=== PATIENT | female | born 1995 | race Caucasian/White ===

== ENCOUNTER 2021-10-17 15:29 | Emergency (ER) | payer BC ==
--- NOTE | 2021-10-17 15:46 | PCM.EKG ---
#1 Interpretation EKG Date: 10/17/21 Time: 15:31 Rhythm: Other (sinus tachy) Rate (Beats/Min): 130 ST-T: Normal
[2021-10-17] MEDS ORDERED: Sodium Chloride 0.9% 1,000 ML IV ONE (16:04)
[2021-10-17] MEDS ORDERED: Ketorolac 30 MG/ML SDV IVPUSH ONE (16:05)
--- NOTE | 2021-10-17 16:06 | EDM.PDOC ---
ED HPI GENERAL MEDICAL PROBLEM - General Chief Complaint: Respiratory Problem Stated Complaint: CHEST PAIN SOB COUGHING Time Seen by Provider: 10/17/21 16:02 Source of Information: Reports: Patient History Limitations: Reports: No Limitations - History of Present Illness INITIAL COMMENTS - FREE TEXT/NARRATIVE: HISTORY AND PHYSICAL: History of present illness: Patient is a 25-year-old female who presents to the emergency room with complaints of shortness of breath, cough, sore throat, fever and chest pain. Patient denies any headache, change in vision, syncope or near syncope. Denies any back pain or hemoptysis. Denies any abdominal pain, nausea, vomiting, diarrhea, constipation or dysuria. Has not noted any blood in urine or stool. No concern for . Patient has been eating and drinking appropriately. No recent travel or sick contacts. Review of systems: As per history of present illness and below otherwise all systems reviewed and negative. Past medical history: As per history of present illness and as reviewed below otherwise noncontributory. Surgical history: As per history of present illness and as reviewed below otherwise noncontributory. Social history: See social history for further information Family history: As per history of present illness and as reviewed below otherwise noncontributory. Physical exam: General: Well developed and well nourished. Alert and orientated x 3. Nontoxic in appearance and in no acute distress. Vital signs are stable and have been reviewed by me. Nursing notes were reviewed. HEENT: Atraumatic, normocephalic, pupils equal and reactive bilaterally, negative for conjunctival pallor or scleral icterus, mucous membranes moist, TMs normal bilaterally, throat clear, neck supple, nontender, trachea midline. No drooling or trismus noted. No meningeal signs. No hot potato voice noted. Lungs: Clear to auscultation bilaterally. No wheezes, rales, or rhonchi. Chest nontender. Normal work of breathing, no accessory muscles used. Heart: S1S2, tachycardia, regular rhythm without overt murmur, gallops, or rubs. No JVD. No peripheral edema Abdomen: Soft, nondistended, nontender. Normoactive bowel sounds. Negative for masses or costovertebral tenderness. Skin: Intact, warm, dry. No lesions or rashes noted. Hematologic: No petechiae or purpra. Mucosa appropriate color and normal nail bed color and refill. Extremities: Atraumatic, moves all extremities per self without difficulty or deficits, negative for cords or calf pain. Neurovascular unremarkable. Neuro: Awake, alert, oriented. Cranial nerves II through XII unremarkable. Cerebellum unremarkable. Motor and sensory unremarkable throughout. Exam nonfocal. Psychiatric: Mood and affect are appropriate. Normal thought process. Answering questions appropriately. Please note that the patient was seen and evaluated during the 2019 SARS-CoV-2 novel coronavirus pandemic period. Community viral transmission is ongoing at time of this encounter and the emergency department is operating under pandemic response procedures. Medical Decision Making: Patient's lab work is unremarkable with the exception of influenza A. Chest x- ray shows no acute findings. Her vital signs have improved. We will give her a work note to quarantine over the next 1 week until she is fever free for 24 hours. I have talked with the patient about today's findings, in addition to providing specific details for plan of care. Reassessment at the time of disposition demonstrates that the patient is in no acute distress. The patient is stable for discharge, counseling was provided and we discussed in great detail signs and symptoms that would prompt them to return to the Emergency Department. Medication, follow up and supportive care measures were reviewed and discussed. Voices understanding and is agreeable to plan of care. Denies any further questions or concerns at this time. Diagnostics: COVID-19/influenza, CBC, CMP, TSH, chest x-ray Therapeutics: IV fluid, Toradol Prescription: Cherratussin AC Impression: Influenza A Plan: 1. You were evaluated today on an emergent basis. Your Influenza A screening is positive. Your lab work. chest x-ray and COVID-19 are normal. You are considered contagious. Please stay indoors x 1 week or until you are fever free x 24 hours. 2. You can alternate Tylenol and ibuprofen as needed for pain and fever management. 3. We encourage you to follow up with your primary care provider for re- evaluation and further care/management. 4. If your symptoms should worsen, new symptoms develop or any of the signs and symptoms we discussed should arise please return to the emergency room or call 911 (if needed). Definitive disposition and diagnosis as appropriate pending reevaluation and review of above. - Related Data Allergies Allergy/AdvReac Type Severity Reaction Status Date / Time No Known Allergies Allergy Verified 10/17/21 15:44 Home Meds: Home Meds Control 01/08/19 [History] Past Medical History - Past Health History Medical/Surgical History: Denies Medical/Surgical History - Infectious Disease History Infectious Disease History: Reports: None Social & Family History - Family History Family Medical History: No Pertinent Family History ED ROS GENERAL - Review of Systems Review Of Systems: Comprehensive ROS is negative, except as noted in HPI. ED EXAM, GENERAL - Physical Exam Exam: See Below (See dictation) Course - Vital Signs Last Recorded V/S: Last Vital Signs Temp 100.4 F 10/17/21 15:44 Pulse 130 H 10/17/21 15:44 Resp 16 10/17/21 15:44 BP 124/66 10/17/21 15:44 Pulse Ox 98 10/17/21 15:44 - Orders/Labs/Meds Orders: Active Orders 24 hr Category Date Time Status STREP A BY PCR [MOLEC] Stat Lab 10/17/21 16:12 Received Labs: Laboratory Tests 10/17/21 10/17/21 10/17/21 Range/Units 16:10 16:10 16:12 WBC 7.69 (4.0-11.0) K/uL RBC 4.36 (4.30-5.90) M/uL Hgb 13.9 (12.0-16.0) g/dL Hct 40.9 (36.0-46.0) % MCV 93.8 (80.0-98.0) fL MCH 31.9 (27.0-32.0) pg MCHC 34.0 (31.0-37.0) g/dL RDW Std Deviation 41.9 (28.0-62.0) fl RDW Coeff of Beau 12 (11.0-15.0) % Plt Count 220 (150-400) K/uL MPV 10.90 (7.40-12.00) fL Neut % (Auto) 74.9 (48.0-80.0) % Lymph % (Auto) 10.9 L (16.0-40.0) % [place] % (Auto) 13.5 (0.0-15.0) % Eos % (Auto) 0.4 (0.0-7.0) % Baso % (Auto) 0.3 (0.0-1.5) % Neut # (Auto) 5.8 H (1.4-5.7) K/uL Lymph # (Auto) 0.8 (0.6-2.4) K/uL [place] # (Auto) 1.0 H (0.0-0.8) K/uL Eos # (Auto) 0.0 (0.0-0.7) K/uL Baso # (Auto) 0.0 (0.0-0.1) K/uL Nucleated RBC % 0.0 /100WBC Nucleated RBCs # 0 K/uL Sodium 138 (136-145) mmol/L Potassium 3.5 (3.5-5.1) mmol/L Chloride 103 (98-107) mmol/L Carbon Dioxide 26.0 (21.0-32.0) mmol/L BUN 9 (7.0-18.0) mg/dL Creatinine 0.8 (0.6-1.0) mg/dL Est Cr Clr Drug Dosing 93.64 mL/min Estimated GFR (MDRD) > 60.0 ml/min Glucose 95 (74-106) mg/dL Calcium 8.4 L (8.5-10.1) mg/dL Total Bilirubin 0.4 (0.2-1.0) mg/dL AST 21 (15-37) IU/L ALT 25 (14-63) IU/L Alkaline Phosphatase 70 (46-116) U/L Total Protein 7.6 (6.4-8.2) g/dL Albumin 3.8 (3.4-5.0) g/dL Globulin 3.8 (2.6-4.0) g/dL Albumin/Globulin Ratio 1.0 (0.9-1.6) TSH, Ultra Sensitive 3.32 (0.36-3.74) uIU/mL Influenza Type A RNA POSITIVE H (NEGATIVE) Influenza Type B RNA NEGATIVE (NEGATIVE) SARS-CoV-2 RNA (AIME) NEGATIVE (NEGATIVE) Meds: Medications Discontinued Medications Generic Name Dose Route Start Last Admin Trade Name Freq PRN Reason Stop Dose Admin Sodium Chloride 1,000 mls @ 999 mls/hr 10/17/21 16:04 10/17/21 16:22 Normal Saline IV 10/17/21 17:04 999 mls/hr STAT ONE Administration Ketorolac Tromethamine 30 mg 10/17/21 16:05 10/17/21 16:22 Ketorolac 30 Mg/Ml Sdv IVPUSH 10/17/21 16:06 30 mg ONETIME ONE Administration Departure - Departure Time of Disposition: 18:06 Disposition: Home, Self-Care 01 Clinical Impression: Influenza A - Discharge Information Instructions: Influenza, Adult, [id number] Forms: ED Department Discharge Additional Instructions: The following information is given to patients seen in the emergency department who are being discharged to home. This information is to outline your options for follow-up care. We provide all patients seen in our emergency department with a follow-up referral. The need for follow-up, as well as the timing and circumstances, are variable depending upon the specifics of your emergency department visit. If you don't have a primary care physician on staff, we will provide you with a referral. We always advise you to contact your personal physician following an emergency department visit to inform them of the circumstance of the visit and for follow-up with them and/or the need for any referrals to a consulting specialist. The emergency department will also refer you to a specialist when appropriate. This referral assures that you have the opportunity for follow-up care with a specialist. All of these measure are taken in an effort to provide you with optimal care, which includes your follow-up. Under all circumstances we always encourage you to contact your private physician who remains a resource for coordinating your care. When calling for follow-up care, please make the office aware that this follow-up is from your recent emergency room visit. If for any reason you are refused follow-up, please contact the [facility] Emergency Department at and asked to speak to the emergency department charge nurse. [facility] [address] [place] [address] [id number] [address] [address] Thank you for choosing the [facility] emergency department in [place] for your medical needs today. It was a pleasure caring for you. Today you were seen in the emergency department for influenza 1. You were evaluated today on an emergent basis. Your Influenza A screening is positive. Your lab work. chest x-ray and COVID-19 are normal. You are considered contagious. Please stay indoors x 1 week or until you are fever free x 24 hours. 2. You can alternate Tylenol and ibuprofen as needed for pain and fever management. 3. We encourage you to follow up with your primary care provider for re- evaluation and further care/management. 4. If your symptoms should worsen, new symptoms develop or any of the signs and symptoms we discussed should arise please return to the emergency room or call 911 (if needed). Sepsis Event Note (ED) - Focused Exam Vital Signs: Vital Signs Temp Pulse Resp BP Pulse Ox 10/17/21 15:44 100.4 F 130 H 16 124/66 98 - My Orders Last 24 Hours: My Active Orders 10/17/21 16:12 STREP A BY PCR [MOLEC] Stat - Assessment/Plan Last 24 Hours: My Active Orders 10/17/21 16:12 STREP A BY PCR [MOLEC] Stat
[2021-10-17 17:27] LABS: BLOOD UREA NITROGEN,BUN 9 mg/dL (7.0-18.0); CHLORIDE,CL 103 mmol/L (98-107); GLUCOSE RANDOM 95 mg/dL (74-106); POTASSIUM,K 3.5 mmol/L (3.5-5.1); SODIUM,NA 138 mmol/L (136-145)
[2021-10-17 17:50] LABS: CORONAVIRUS COVID-19 NAA NEGATIVE (NEGATIVE); INFLUENZA A NAA POSITIVE (NEGATIVE); INFLUENZA B NAA NEGATIVE (NEGATIVE)
--- NOTE | 2021-10-17 17:51 | CR ---
INDICATION: cough TECHNIQUE: Chest 1 view. COMPARISON: 10/13/14 FINDINGS: Cardiovascular and mediastinum: Heart size and vasculature are normal in caliber and appearance. Mediastinum is within normal limits. Lungs and pleural space: Lungs are clear. No sign of infiltrate or mass. No sign of pleural effusion. No pneumothorax. Bones and soft tissues: No significant findings. IMPRESSION: Unremarkable chest. Dictated by: Gordo Borrero MD @ 10/17/2021 17:49:06 (Electronically Signed)
== END 2021-10-17 18:36 | disposition home or self-care (01) ==
LOC: MW.ED 15:29
DX: J10.1 Influenza due to other identified influenza virus with other respiratory manifestations (principal); Z20.822 Contact with and (suspected) exposure to COVID-19
CPT/HCPCS: 0240U; 36415; 71045; 80053; 84443; 85025; 87651; 93005; 96374; 99284; J1885; J7030

== ENCOUNTER 2023-04-02 13:31 | Emergency (ER) | payer BC ==
[2023-04-02] MEDS ORDERED: Acetaminophen 325 MG Tab PO ONE (16:40)
[2023-04-02 17:12] LABS: APPEARANCE,URINE CLEAR; BILIRUBIN,URINE NEGATIVE (NEGATIVE); COLOR,URINE YELLOW; GLUCOSE,URINE NEGATIVE (NEGATIVE); KETONES,URINE NEGATIVE (NEGATIVE); LEUKOCYTE ESTERASE,URINE NEGATIVE (NEGATIVE); NITRITE,URINE NEGATIVE (NEGATIVE); OCCULT BLOOD,URINE TRACE-INTACT (NEGATIVE); PROTEIN,URINE NEGATIVE (NEGATIVE); UROBILINOGEN,URINE 0.2 EU/dL (<2.0)
[2023-04-02 17:25] LABS: RBC,URINE 0-3 (0-2/HPF); WBC,URINE 0-1 (0-5/HPF)
[2023-04-02 17:45] LABS: BASOPHILS PERCENT AUTO 0.3 % (0.0-1.5); EOSINOPHILS PERCENT AUTO 0.3 % (0.0-7.0); HEMATOCRIT 40.9 % (36.0-46.0); LYMPHOCYTES ABSOLUTE AUTO 2.3 K/uL (0.6-2.4); LYMPHOCYTES PERCENT AUTO 20.9 % (16.0-40.0); MEAN CORPUSCULAR HEMOGLOBIN 31.7 pg (27.0-32.0); MEAN CORPUSCULAR HGB CONC 34.2 g/dL (31.0-37.0); MEAN CORPUSCULAR VOLUME 92.7 fL (80.0-98.0); MONOCYTES ABSOLUTE AUTO 0.5 K/uL (0.0-0.8); MONOCYTES PERCENT AUTO 4.7 % (0.0-15.0); NEUTROPHILS ABSOLUTE AUTO 7.9 K/uL (1.4-5.7); NEUTROPHILS PERCENT AUTO 73.8 % (48.0-80.0); NRBC ABSOLUTE 0 K/uL; PLATELET COUNT,PLT 307 K/uL (150-400); RED BLOOD CELL COUNT 4.41 M/uL (4.30-5.90); WHITE BLOOD CELL COUNT,WBC 10.75 K/uL (4.0-11.0)
[2023-04-02 18:51] LABS: BILIRUBIN TOTAL 0.6 mg/dL (0.2-1.0); CALCIUM 8.7 mg/dL (8.5-10.1); CARBON DIOXIDE,CO2 24.3 mmol/L (21.0-32.0); CREATININE 0.7 mg/dL (0.6-1.0); EST CRCL DRUG DOSING (CG) 100.74 mL/min; POTASSIUM,K 3.7 mmol/L (3.5-5.1); PROTEIN TOTAL,TP 7.9 g/dL (6.4-8.2)
== END 2023-04-02 20:30 | disposition home or self-care (01) ==
LOC: MW.ED 13:31
DX: O20.0 Threatened abortion (principal); Z3A.01 Less than 8 weeks gestation of pregnancy
CPT/HCPCS: 36415; 76817; 76817-26; 80053; 81001; 84702; 85025; 86850; 86900; 86901; 99284

== ENCOUNTER 2023-04-07 23:36 | Emergency (ER) | payer BC ==
[2023-04-08 01:22] LABS: BASOPHILS PERCENT AUTO 0.2 % (0.0-1.5); EOSINOPHILS PERCENT AUTO 0.1 % (0.0-7.0); HEMATOCRIT 39.1 % (36.0-46.0); HEMOGLOBIN 13.6 g/dL (12.0-16.0); LYMPHOCYTES ABSOLUTE AUTO 2.4 K/uL (0.6-2.4); LYMPHOCYTES PERCENT AUTO 12.6 % (16.0-40.0); MEAN CORPUSCULAR HEMOGLOBIN 32.4 pg (27.0-32.0); MEAN CORPUSCULAR HGB CONC 34.8 g/dL (31.0-37.0); MEAN CORPUSCULAR VOLUME 93.1 fL (80.0-98.0); MONOCYTES ABSOLUTE AUTO 0.7 K/uL (0.0-0.8); MONOCYTES PERCENT AUTO 3.9 % (0.0-15.0); NEUTROPHILS ABSOLUTE AUTO 15.9 K/uL (1.4-5.7); NEUTROPHILS PERCENT AUTO 83.2 % (48.0-80.0); NRBC ABSOLUTE 0 K/uL; PLATELET COUNT,PLT 292 K/uL (150-400); WHITE BLOOD CELL COUNT,WBC 19.09 K/uL (4.0-11.0)
[2023-04-08] MEDS ORDERED: Amoxicillin/Clavulanate K 875-125 MG Tab PO ONE (02:08)
== END 2023-04-08 02:36 | disposition home or self-care (01) ==
LOC: MW.ED 23:36
DX: O03.4 Incomplete spontaneous abortion without complication (principal)
CPT/HCPCS: 36415; 76817; 85025; 86850; 86900; 86901; 99284; A9270

== ENCOUNTER 2024-06-03 01:12 | Inpatient (IN) | payer BC ==
[2024-06-03] MEDS ORDERED: Oxytocin/0.9 % Sodium Chloride 30 UNIT/500 ML BAG IV SCH (01:15)
[2024-06-03] MEDS ORDERED: Nalbuphine 10 MG/1 ML Vial IVPUSH PRN (01:15)
[2024-06-03] MEDS ORDERED: Ondansetron 4 MG/2 ML SDV IVPUSH PRN (01:15)
[2024-06-03] MEDS ORDERED: Methylergonovine 0.2 MG/1 ML Amp IM PRN ×2 (01:15→18:59)
[2024-06-03] MEDS ORDERED: Butorphanol 2 MG/ML SDV IVPUSH PRN (01:15)
[2024-06-03] MEDS ORDERED: Sodium Chloride 0.9% 10 ML Syringe FLUSH PRN (01:15)
[2024-06-03] MEDS ORDERED: Tranexamic Acid IN NACL,ISO-OS 1,000 MG in Premix Bag 1 BAG IV PRN ×2 (01:15→18:59)
[2024-06-03] MEDS ORDERED: Water For Irrigation,Sterile 1,000 ML Container IRR PRN (01:15)
[2024-06-03] MEDS ORDERED: Carboprost Tromethamine 250 MCG/1 mL Vial IM PRN (01:15)
[2024-06-03] MEDS ORDERED: Misoprostol 200 MCG Tab PO PRN (01:15)
[2024-06-03] MEDS ORDERED: Sodium Chloride 0.9% 2.5 ML Syringe FLUSH PRN (01:15)
[2024-06-03] MEDS ORDERED: Sodium Chloride 0.9% 20 ML SDV IV PRN (01:15)
[2024-06-03] MEDS ORDERED: Lidocaine 1% 50 ML MDV INJECT PRN (01:15)
[2024-06-03] MEDS ORDERED: Terbutaline 1 MG/ML SDV SUBCUT PRN (01:15)
[2024-06-03] MEDS ORDERED: Misoprostol 25 MCG (1/4 of 100 MCG) Tab PO ONE (01:19)
[2024-06-03 02:12] LABS: HEMATOCRIT 33.2 % (37.0-47.0); HEMOGLOBIN 11.8 g/dL (12.0-16.0); MEAN CORPUSCULAR HEMOGLOBIN 32.3 pg (28.0-32.0); MEAN CORPUSCULAR HGB CONC 35.5 g/dL (32.0-36.0); MEAN PLATELET VOLUME 10.6 fL (9.4-12.3); PLATELET COUNT,PLT 245 K/uL (150-400); RED BLOOD CELL COUNT 3.65 M/uL (4.10-5.30); WHITE BLOOD CELL COUNT,WBC 13.71 K/uL (3.9-11.3)
[2024-06-03] MEDS: Misoprostol 25 MCG (1/4 of 100 MCG) Tab VAG PRN ×2 (02:54→08:01)
[2024-06-03] MEDS: Lactated Ringers 1,000 ML IV SCH (12:32)
[2024-06-03] MEDS: Oxytocin/0.9 % Sodium Chloride 30 UNIT/500 ML BAG IV SCH (12:44)
[2024-06-03] MEDS ORDERED: Phenylephrine HCl In 0.9% NaCl 1 MG/10 ML Syringe ONE (14:21)
[2024-06-03] MEDS ORDERED: Bupivacaine 0.5% 10 ML SDV ONE (14:21)
[2024-06-03] MEDS ORDERED: Phenylephrine HCl In 0.9% NaCl 1 MG/10 ML Syringe IVPUSH PRN (14:46)
[2024-06-03] MEDS ORDERED: ePHEDrine 50 MG/ML SDV IVPUSH PRN ×2 (14:46)
[2024-06-03] MEDS: Ropivacaine HCl/PF 200 ML ONE (14:47)
[2024-06-03] MEDS ORDERED: Bupivacaine 0.5% 10 ML SDV INJECT ONE (14:53)
[2024-06-03] MEDS ORDERED: ePHEDrine 50 MG/ML SDV IM PRN (14:53)
[2024-06-03] MEDS ORDERED: dexmedeTOMIDine HCl 200 MCG/2 ML SDV EPIDUR SCH (15:00)
[2024-06-03] MEDS ORDERED: Ropivacaine HCl/PF 400 MG in Premix Bag 1 BAG EPIDUR SCH (15:00)
[2024-06-03] MEDS ORDERED: Lanolin 100% Cream 7 GM Tube TOP PRN (18:59)
[2024-06-03] MEDS ORDERED: Benzocaine/Menthol 20%-0.5% Spray 78 GM Cannister TOP PRN (18:59)
[2024-06-03] MEDS ORDERED: Ibuprofen 800 MG Tab PO PRN (18:59)
[2024-06-03] MEDS ORDERED: Docusate Sodium 100 MG Cap PO PRN (18:59)
[2024-06-03] MEDS ORDERED: Misoprostol 200 MCG Tab RECTAL PRN (18:59)
[2024-06-03] MEDS ORDERED: Witch Hazel Medicated Pads 40/Jar TOP PRN (18:59)
[2024-06-03 19:40] LABS: PH,UMBILICAL ARTERIAL 7.224 (7.18-7.38); PH,UMBILICAL VENOUS 7.285 (7.25-7.45)
[2024-06-04 05:40] LABS: HEMATOCRIT 30.7 % (37.0-47.0); HEMOGLOBIN 10.4 g/dL (12.0-16.0)
[2024-06-04] MEDS ORDERED: [UNRECOGNIZED DRUG - REMARK] PO SCH (09:00)
[2024-06-04] MEDS: Acetaminophen 500 MG Tab PO PRN (10:50)
[2024-06-04] MEDS: Prenatal Multivitamin with Calcium/Folic Acid/Iron Tab PO SCH (10:52)
== END 2024-06-05 16:00 | disposition home or self-care (01) | DRG 560 ==
LOC: MW.OB 01:12 → UNDOADMOB 01:12 → MW.OB 01:15 → OBSVTOIN 18:35 → MW.OB 18:35
PROVIDERS: ADMIT Obstetrics & Gynecology; ATTEND Obstetrics & Gynecology Obstetrics
PROC: 10E0XZZ Delivery of Products of Conception, External Approach (ICD-10-PCS; principal; 2024-06-03)
PROC: 10907ZC Drainage of Amniotic Fluid, Therapeutic from Products of Conception, Via Natural or Artificial Opening (ICD-10-PCS; 2024-06-03)
PROC: 3E033VJ Introduction of Other Hormone into Peripheral Vein, Percutaneous Approach (ICD-10-PCS; 2024-06-03)
PROC: 3E0P7VZ Introduction of Hormone into Female Reproductive, Via Natural or Artificial Opening (ICD-10-PCS; 2024-06-03)
PROC: 0HQ9XZZ Repair Perineum Skin, External Approach (ICD-10-PCS; 2024-06-03)
PROC: 3E0R3BZ Introduction of Anesthetic Agent into Spinal Canal, Percutaneous Approach (ICD-10-PCS; 2024-06-03)
PROC: 00HU33Z Insertion of Infusion Device into Spinal Canal, Percutaneous Approach (ICD-10-PCS; 2024-06-03)
DX: O99.284 Endocrine, nutritional and metabolic diseases complicating childbirth (principal); Z37.0 Single live birth; D62 Acute posthemorrhagic anemia; O99.344 Other mental disorders complicating childbirth; E88.09 Other disorders of plasma-protein metabolism, not elsewhere classified; O70.0 First degree perineal laceration during delivery; O69.81X0 Labor and delivery complicated by cord around neck, without compression, not applicable or unspecified; F32.5 Major depressive disorder, single episode, in full remission; O90.81 Anemia of the puerperium; Z3A.39 39 weeks gestation of pregnancy; Z90.89 Acquired absence of other organs
CPT/HCPCS: 01967; 36415; 51702; 59025; 59409; 82803; 85014; 85018; 85027; 86592; 86850; 86900; 86901; A9270-GY; J0665; J2371; J2590; J2795; J7120